=== PATIENT | male | born 1955 | race Caucasian/White ===

== ENCOUNTER 2023-02-05 17:25 | Emergency (ER) | payer OTHER, MEDICARE ==
[2023-02-05 18:07] LABS: BASOPHILS ABSOLUTE AUTO 0.05 K/uL (0.02-0.10); BASOPHILS PERCENT AUTO 0.6 % (0.0-0.5); EOSINOPHILS ABSOLUTE AUTO 0.11 K/uL (0.04-0.40); EOSINOPHILS PERCENT AUTO 1.2 % (1.0-5.0); HEMATOCRIT 43.9 % (40.0-54.0); HEMOGLOBIN 15.2 g/dL (13.0-18.0); LYMPHOCYTES PERCENT AUTO 16.9 % (20.0-40.0); MEAN CORPUSCULAR HGB CONC 34.6 g/dL (31.0-35.0); MEAN CORPUSCULAR VOLUME 90 fL (76-96); MEAN PLATELET VOLUME 9.3 fL (6.0-10.0); MONOCYTES ABSOLUTE AUTO 0.68 K/uL (0.20-0.80); MONOCYTES PERCENT AUTO 7.6 % (3.0-10.0); NEUTROPHILS ABSOLUTE AUTO 6.55 K/uL (2.00-7.50); NEUTROPHILS PERCENT AUTO 73.7 % (45.0-70.0); PLATELET COUNT,PLT 235 K/uL (150-400); RED CELL DISTRIBUTION WIDTH 13.3 % (11.0-16.0); WHITE BLOOD CELL COUNT,WBC 8.9 K/uL (4.0-11.0)
[2023-02-05 18:23] LABS: APPEARANCE,URINE CLEAR (CLEAR); BILIRUBIN,URINE NEGATIVE (NEGATIVE); COLOR,URINE YELLOW; GLUCOSE,URINE NEGATIVE (NEGATIVE); KETONES,URINE 15 mg/dL (NEGATIVE); LEUKOCYTE ESTERASE,URINE NEGATIVE (NEGATIVE); NITRITE,URINE NEGATIVE (NEGATIVE); OCCULT BLOOD,URINE TRACE-INTACT (NEGATIVE); PROTEIN,URINE NEGATIVE (NEGATIVE); UROBILINOGEN,URINE 0.2 E.U./dL (0.2-1.0)
[2023-02-05 18:29] LABS: EPITHELIAL CELLS,URINE FEW /HPF; FINE GRANULAR CASTS,URINE OCCASIONAL /HPF; RBC,URINE 0-5 /HPF; WBC,URINE NOT SEEN /HPF
[2023-02-05 18:36] LABS: A/G RATIO 1.1 (0.8-2.0); ALANINE AMINOTRANSFERASE,ALT 33 U/L (12-78); ALBUMIN 4.2 g/dL (3.4-5.0); ALKALINE PHOSPHATASE 79 U/L (46-116); ANION GAP 12.9 mmol/L (5.0-15.0); ASPARTATE AMNIOTRANSFERASE,AST 21 U/L (15-37); BILIRUBIN TOTAL 0.7 mg/dL (0.0-1.0); BLOOD UREA NITROGEN,BUN 13 mg/dL (8-26); BUN/CREATININE RATIO 14.8 (6-25); CALCIUM 9.1 mg/dL (8.5-10.1); CARBON DIOXIDE,CO2 26.9 mmol/L (21.0-32.0); CHLORIDE,CL 104 mmol/L (98-107); CREATININE 0.88 mg/dL (0.70-1.30); ESTIMATED GFR 95 mL/min (>60); GLUCOSE RANDOM 89 mg/dL (74-100); POTASSIUM,K 3.8 mmol/L (3.5-5.1); PROTEIN TOTAL,TP 8.1 g/dL (6.4-8.2); SODIUM,NA 140 mmol/L (136-145); TSH ULTRASENSITIVE 4.948 uIU/mL (0.358-3.740)
[2023-02-05] MEDS ORDERED: Heparin Sodium 5,000 Units/ML Vial IVPUSH ONE (19:10)
[2023-02-05] MEDS ORDERED: Heparin Sodium/D5W 25,000 UNITS/500 ML BAG IV SCH (19:15)
== END 2023-02-05 20:30 ==
LOC: EDBD → LB.ED 17:25
DX: I21.4 Non-ST elevation (NSTEMI) myocardial infarction (principal); I10 Essential (primary) hypertension; R94.6 Abnormal results of thyroid function studies
CPT/HCPCS: 36415; 71046; 80053; 81001; 84443; 84484; 85025; 93005; 96365; 99285; J1644